=== PATIENT | female | born 1985 | race Caucasian/White ===

== ENCOUNTER 2019-06-17 20:41 | Emergency (ER) | payer SELFPAY ==
--- NOTE | 2019-06-17 22:03 | Emergency Department Report ---
Blank Doc - Documentation Documentation: This is a 34-year-old female that presents with sore throat and bilateral ear pain. This initial assessment/diagnostic orders/clinical plan/treatment(s) is/are subject to change based on patient's health status, clinical progression and re- assessment by fellow clinical providers in the ED. Further treatment and workup at subsequent clinical providers discretion. Patient/guardians urged not to elope from the ED as their condition may be serious if not clinically assessed and managed. Initial orders include: 1- Patient sent to [facility] for further evaluation and treatment 2- strep swab
[2019-06-17] MEDS ORDERED: AUGMENTIN 875 MG PO ONE (23:32)
[2019-06-17] MEDS ORDERED: DECADRON IM ONE (23:32)
[2019-06-17] MEDS ORDERED: IBUPROFEN PO ONE (23:32)
--- NOTE | 2019-06-18 00:06 | Emergency Department Report ---
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 there is hx of asthma pt denies sob no wheezing no cp no activity intolerance. MD complaint: sore throat, ear pain Onset/Timin -: week(s) Location: R ear, L ear, throat Severity: moderate Severity scale (0 -10): 5 Quality: stabbing, sharp Consistency: constant Improves with: none Worsens with: swallowing, movement - Related Data Previous Rx's Medication Instructions Recorded Last Taken Type Amoxicillin/Potassium Clav 1 each PO BID 10 Days #20 tablet 06/18/19 Unknown Rx [Augmentin 875-125 Tablet] Ibuprofen [Motrin 800 MG tab] 800 mg PO Q8HR PRN #30 tablet 06/18/19 Unknown Rx diphenhydrAMINE [Benadryl CAP] 25 mg PO Q6HR PRN #30 capsule 06/18/19 Unknown Rx predniSONE [Deltasone] 40 mg PO QDAY 5 Days #10 tab 06/18/19 Unknown Rx Allergies Allergy/AdvReac Type Severity Reaction Status Date / Time labetalol Allergy Unknown Verified 06/17/19 20:50 lisinopril Allergy Unknown Verified 06/17/19 20:50 Sulfa (Sulfonamide Allergy Hives Verified 06/17/19 20:50 Antibiotics) ED Dental HPI - General Chief complaint: Sore Throat Stated complaint: BILATERAL EAR PAIN, THROAT SWELLING Time Seen by Provider: 06/17/19 22:02 Source: patient Mode of arrival: Ambulatory Limitations: No Limitations - Related Data Previous Rx's Medication Instructions Recorded Last Taken Type Amoxicillin/Potassium Clav 1 each PO BID 10 Days #20 tablet 06/18/19 Unknown Rx [Augmentin 875-125 Tablet] Ibuprofen [Motrin 800 MG tab] 800 mg PO Q8HR PRN #30 tablet 06/18/19 Unknown Rx diphenhydrAMINE [Benadryl CAP] 25 mg PO Q6HR PRN #30 capsule 06/18/19 Unknown Rx predniSONE [Deltasone] 40 mg PO QDAY 5 Days #10 tab 06/18/19 Unknown Rx Allergies Allergy/AdvReac Type Severity Reaction Status Date / Time labetalol Allergy Unknown Verified 06/17/19 20:50 lisinopril Allergy Unknown Verified 06/17/19 20:50 Sulfa (Sulfonamide Allergy Hives Verified 06/17/19 20:50 Antibiotics) ED Review of Systems ROS: Stated complaint: BILATERAL EAR PAIN, THROAT SWELLING Other details as noted in HPI Constitutional: chills, fever, malaise Eyes: denies: eye pain, eye discharge, vision change ENT: ear pain, throat pain, congestion Respiratory: denies: cough, shortness of breath, wheezing Cardiovascular: denies: chest pain, palpitations Endocrine: no symptoms reported Gastrointestinal: denies: abdominal pain, nausea, vomiting, diarrhea, constipation, melena Genitourinary: denies: urgency, dysuria, discharge Musculoskeletal: denies: back pain, joint swelling, arthralgia Skin: denies: rash, lesions Neurological: denies: headache, weakness, paresthesias Psychiatric: denies: anxiety, depression Hematological/Lymphatic: denies: easy bleeding, easy bruising ED Past Medical Hx - Past Medical History Previous Medical History?: Yes Hx Hypertension: Yes - Surgical History Past Surgical History?: Yes Hx Cholecystectomy: Yes Additional Surgical History: x 2, Ectopic - Social History Smoking Status: Never Smoker - Medications Home Medications: Home Medications Medication Instructions Recorded Confirmed Last Taken Type Amoxicillin/Potassium Clav 1 each PO BID 10 Days #20 tablet 06/18/19 Unknown Rx [Augmentin 875-125 Tablet] Ibuprofen [Motrin 800 MG tab] 800 mg PO Q8HR PRN #30 tablet 06/18/19 Unknown Rx diphenhydrAMINE [Benadryl CAP] 25 mg PO Q6HR PRN #30 capsule 06/18/19 Unknown Rx predniSONE [Deltasone] 40 mg PO QDAY 5 Days #10 tab 06/18/19 Unknown Rx ED Physical Exam - General Limitations: No Limitations General appearance: alert, in no apparent distress - Head Head exam: Present: atraumatic, normocephalic - Eye Eye exam: Present: normal appearance, PERRL, EOMI Pupils: Present: normal accommodation - ENT ENT exam: Present: mucous membranes moist - Expanded ENT Exam Expanded Ear exam: Present: normal external inspection TM/Canal exam: Erythema: Right TM, Left TM, Canal Tenderness: Right TM, Left TM Mouth exam: Absent: trismus Teeth exam: Present: normal inspection Throat exam: Positive: tonsillar erythema, tonsillomegaly, tonsillar exudate. Negative: R peritonsillar mass, L peritonsillar mass, other - Neck Neck exam: Present: normal inspection, tenderness, full ROM. Absent: meningismus, lymphadenopathy, thyromegaly - Respiratory Respiratory exam: Present: normal lung sounds bilaterally. Absent: respiratory distress, wheezes, rales, rhonchi, stridor, chest wall tenderness, accessory muscle use, decreased breath sounds, prolonged expiratory - Cardiovascular Cardiovascular Exam: Present: regular rate, normal rhythm, normal heart sounds. Absent: systolic murmur, diastolic murmur, rubs, gallop - GI/Abdominal GI/Abdominal exam: Present: soft, normal bowel sounds. Absent: distended, tenderness, bruit, hernia - Rectal Rectal exam: Present: deferred - Extremities Exam Extremities exam: Present: normal inspection, full ROM, normal capillary refill. Absent: tenderness, pedal edema, joint swelling, calf tenderness - Back Exam Back exam: Present: normal inspection, full ROM. Absent: tenderness, CVA tenderness (R), CVA tenderness (L), muscle spasm, paraspinal tenderness, vertebral tenderness, rash noted - Neurological Exam Neurological exam: Present: alert, oriented X3, CN II-XII intact, normal gait, reflexes normal. Absent: motor sensory deficit - Psychiatric Psychiatric exam: Present: normal affect, normal mood - Skin Skin exam: Present: warm, dry, intact, normal color. Absent: rash ED Course Vital Signs 06/17/19 06/17/19 22:04 23:50 Temperature 98.8 F Pulse Rate 78 Respiratory 16 16 Rate Blood Pressure 148/99 O2 Sat by Pulse 98 Oximetry ED Medical Decision Making - Medical Decision Making this is sinusitis with ear and throat pain no stridor no wheezing no sob plan, augmentin, ibuprofen, decadron, benadryl follow up with pcp in 2-3 days return to ed if symptoms worsen, pt verbalized agreement and understanding of same. Critical care attestation.: If time is entered above; I have spent that time in minutes in the direct care of this critically ill patient, excluding procedure time. ED Disposition Clinical Impression: Sinusitis Qualifiers: Sinusitis location: maxillary Chronicity: acute Recurrence: recurrent Qualified Code(s): J01.01 - Acute recurrent maxillary sinusitis Pharyngitis Qualifiers: Pharyngitis/tonsillitis etiology: unspecified etiology Qualified Code(s): J02.9 - Acute pharyngitis, unspecified Disposition: TO HOME OR SELFCARE Is pt being admited?: No Does the pt Need Aspirin: No Condition: Stable Instructions: Sinusitis (ED), Pharyngitis (ED) Prescriptions: Amoxicillin/Potassium Clav [Augmentin 875-125 Tablet] 1 each PO BID 10 Days #20 tablet diphenhydrAMINE [Benadryl CAP] 25 mg PO Q6HR PRN #30 capsule PRN Reason: Congestion predniSONE [Deltasone] 40 mg PO QDAY 5 Days #10 tab Ibuprofen [Motrin 800 MG tab] 800 mg PO Q8HR PRN #30 tablet PRN Reason: pain Referrals: BLANCA CARCAMO MD [Primary Care Provider] - 3-5 Days Forms: Work/School Release Form(ED) Time of Disposition: 00:22
[2019-06-18 01:19] VITALS: BP 149/95
== END 2019-06-18 00:41 | disposition home or self-care (01) ==
LOC: ED 20:41
DX: J01.01 Acute recurrent maxillary sinusitis (principal); J02.9 Acute pharyngitis, unspecified; I10 Essential (primary) hypertension; Z90.49 Acquired absence of other specified parts of digestive tract; Z79.899 Other long term (current) drug therapy; Z88.6 Allergy status to analgesic agent; Z88.2 Allergy status to sulfonamides
CPT/HCPCS: 87116; 87430; 96372; 99283; J1100